=== PATIENT | male | born 1980 | race American Indian/Alaskan Native ===

== ENCOUNTER 2017-01-12 19:15 | Emergency (ER) | payer OTHER ==
[2017-01-12 19:20] VITALS: BP 172/126; PULSE 97; RESP 16; TEMP 98.1; O2SAT 100
[2017-01-12] MEDS ORDERED: Lidocaine 1% Inj (20ml) ONE (19:56)
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
--- NOTE | 2017-01-13 14:49 | RAD ---
PROCEDURE: Cervical spine 01/12/2017 The multiple views of the cervical spine performed. Examination is limited due to obscuration of the odontoid by overlying incisor teeth in the open-mouth projection. HISTORY: Pain. COMPARISON: No prior study available comparison FINDINGS: No acute compression fractures no retropulsed fragments. Vertebral bodies exhibit normal stature. . Straightening of the normal cervical lordosis could be due to patient positioning however element of muscle spasm may contribute. There is very slight posterior subluxation of C3 over C4, C4 over C5 segments exacerbated in appearance by small posterior osteophytes arising from the posterior inferior corners of the C3 and C4 segments. Posterior osteophyte formation noted at the C5-C6 level as well. Disc space heights are relatively maintained. Right sided exit foramina are adequate. Left-sided exit foramina are not adequately delineated due to steep oblique patient position though do appear patent as well. . Prevertebral soft tissues unremarkable. IMPRESSION: Limited study as described. No acute fractures. Mild multilevel degenerative spondylosis as described. If symptoms persist, occult fracture of soft tissue ligamentous or cord injury suspected clinically consider followup MRI.
== END 2017-01-12 20:47 | disposition home or self-care (01) ==
LOC: H.ER 19:15
DX: M62.838 Other muscle spasm (principal); M54.9 Dorsalgia, unspecified; V43.62XA Car passenger injured in collision with other type car in traffic accident, initial encounter; Y92.410 Unspecified street and highway as the place of occurrence of the external cause; I10 Essential (primary) hypertension
CPT/HCPCS: 72052; 96372; 99283; J1885